=== PATIENT | female | born 1960 | race American Indian/Alaskan Native ===

== ENCOUNTER 2020-04-03 16:12 | Emergency (ER) | payer SELFPAY ==
[2020-04-03 17:20] VITALS: BP 167/89
--- NOTE | 2020-04-03 17:25 | Emergency Department Report ---
ED Back Pain/Injury HPI - General Chief Complaint: Back Pain/Injury Stated Complaint: JOINT PAIN Time Seen by Provider: 04/03/20 17:24 Source: patient Limitations: No Limitations - History of Present Illness Initial Comments: Patient is a 59-year-old female presents emergency room complaints of bilateral lower back pain that radiates down her bilateral legs that began earlier today. She states that she has had these symptoms in the past. She states that she works at [employer] and frequently stands all day long. She states it feels like her back locked up on her. She denies any fever, nausea, vomiting, diarrhea, dysuria, dark urine, numbness, weakness, bowel or bladder incontinence. She denies any fall or injury. She has a past medical history of HTN, psoriasis, hepatitis C. No allergies to medications. She states her pain is worse with movement. She is ambulatory. has been off of amlodipine for 3 months. - Related Data Previous Rx's Medication Instructions Recorded Last Taken Type Acetaminophen/Codeine [Tylenol 1 tab PO Q6H PRN #8 tab 01/25/20 Unknown Rx /Codeine # 3 tab] Ibuprofen [Motrin 800 MG tab] 800 mg PO Q8HR PRN #21 tablet 01/25/20 Unknown Rx Naproxen [Naprosyn TAB] 500 mg PO BID PRN #14 tablet 04/03/20 Unknown Rx amLODIPine 10 mg PO DAILY #30 tab 04/03/20 Unknown Rx methOCARBAMOL [Robaxin TAB] 500 mg PO BID PRN #14 tab 04/03/20 Unknown Rx Allergies Allergy/AdvReac Type Severity Reaction Status Date / Time No Known Allergies Allergy Unverified 01/25/20 10:58 ED Review of Systems ROS: Stated complaint: JOINT PAIN Other details as noted in HPI Comment: All other systems reviewed and negative ED Past Medical Hx - Past Medical History Previous Medical History?: Yes Additional medical history: PSORIASIS - Social History Smoking Status: Never Smoker Substance Use Type: None - Medications Home Medications: Home Medications Medication Instructions Recorded Confirmed Last Taken Type Acetaminophen/Codeine [Tylenol 1 tab PO Q6H PRN #8 tab 01/25/20 Unknown Rx /Codeine # 3 tab] Ibuprofen [Motrin 800 MG tab] 800 mg PO Q8HR PRN #21 tablet 01/25/20 Unknown Rx Naproxen [Naprosyn TAB] 500 mg PO BID PRN #14 tablet 04/03/20 Unknown Rx amLODIPine 10 mg PO DAILY #30 tab 04/03/20 Unknown Rx methOCARBAMOL [Robaxin TAB] 500 mg PO BID PRN #14 tab 04/03/20 Unknown Rx ED Physical Exam - General Limitations: No Limitations General appearance: alert, in no apparent distress - Head Head exam: Present: atraumatic, normocephalic - Eye Eye exam: Present: normal appearance - ENT ENT exam: Present: mucous membranes moist - Respiratory Respiratory exam: Present: normal lung sounds bilaterally. Absent: respiratory distress, wheezes, rales, rhonchi, stridor, chest wall tenderness, accessory muscle use, decreased breath sounds, prolonged expiratory - Cardiovascular Cardiovascular Exam: Present: regular rate, normal rhythm, normal heart sounds. Absent: systolic murmur, diastolic murmur, rubs, gallop - Back Exam Back exam: Present: normal inspection, full ROM, paraspinal tenderness (bilateral L-spine paraspinal muscular ttp, no midline C-spine, T-spine or L- spine ttp, no step offs, no deformities, she has pain with SLR of the bilateral legs). Absent: vertebral tenderness - Neurological Exam Neurological exam: Present: alert, oriented X3, CN II-XII intact, normal gait. Absent: motor sensory deficit - Psychiatric Psychiatric exam: Present: normal affect, normal mood - Skin Skin exam: Present: warm, dry, intact ED Course Vital Signs 04/03/20 04/03/20 17:18 17:37 Temperature 98.3 F Pulse Rate 74 Respiratory 16 18 Rate Blood Pressure 167/89 O2 Sat by Pulse 99 Oximetry ED Medical Decision Making - Medical Decision Making Patient is a 59-year-old female presents emergency room complaints of bilateral lower back pain that radiates down her bilateral legs that began earlier today. She states that she has had these symptoms in the past. She states that she works at [employer] and frequently stands all day long. She states it feels like her back locked up on her. She denies any fever, nausea, vomiting, diarrhea, dysuria, dark urine, numbness, weakness, bowel or bladder incontinence. She denies any fall or injury. She has a past medical history of HTN, psoriasis, hepatitis C. No allergies to medications. She states her pain is worse with movement. She is ambulatory. has been off of amlodipine for 3 months. VSS. on exam:bilateral L-spine paraspinal muscular ttp, no midline C- spine, T-spine or L-spine ttp, no step offs, no deformities, she has pain with SLR of the bilateral legs, no focal neuro deficits. Examination appears most consistent with sciatica versus muscle strain. Patient does not have any red flag warning signs of back pain, no trauma, no unexplained weight loss, no focal neuro deficits, no fever, no steroid use, no history of cancer, no IV drug use. Patient given medications while in the emergency department as she did not drive and symptoms significantly improved and she was feeling much better and ready to go home. Patient given prescription for naproxen and Robaxin. Patient also given a prescription for amlodipine. Advised patient Please take medication as prescribed as needed. Do not drive or operate machinery while taking muscle relaxer Robaxin. May use ice pack, heating pad, rest, Epsom salt bath. Follow- up with your primary care doctor for reexamination. Return to emergency room for any new or worsening symptoms. - Differential Diagnosis Sciatica, radiculopathy, DDD, bulging disc, spondylosis, spondylolisthesis Critical care attestation.: If time is entered above; I have spent that time in minutes in the direct care of this critically ill patient, excluding procedure time. ED Disposition Clinical Impression: Low back pain Qualifiers: Chronicity: acute Back pain laterality: bilateral Sciatica presence: with sciatica Sciatica laterality: bilateral sciatica Qualified Code(s): M54.42 - Lumbago with sciatica, left side Disposition: TO HOME OR SELFCARE Is pt being admited?: No Does the pt Need Aspirin: No Condition: Stable Instructions: Sciatica Additional Instructions: Please take medication as prescribed as needed. Do not drive or operate machinery while taking muscle relaxer Robaxin. May use ice pack, heating pad, r est, Epsom salt bath. Follow-up with your primary care doctor for reexamination. Return to emergency room for any new or worsening symptoms. Prescriptions: amLODIPine 10 mg PO DAILY #30 tab Naproxen [Naprosyn TAB] 500 mg PO BID PRN #14 tablet PRN Reason: pain methOCARBAMOL [Robaxin TAB] 500 mg PO BID PRN #14 tab PRN Reason: pain Referrals: ISAK COX MD [Staff Physician] - 2-3 Days [facility] [Provider Group] - 2-3 Days [facility], [LAB/CONTRACT] - 2-3 Days Forms: Work/School Release Form(ED) Time of Disposition: 18:29 Print Language: BENINESE
[2020-04-03] MEDS ORDERED: CYCLOBENZAPRINE 10 MG TAB PO ONE (17:27)
[2020-04-03] MEDS ORDERED: dexAMETHasone 20 MG/5 ML VIAL IM ONE (17:27)
[2020-04-03] MEDS ORDERED: KETOROLAC 60 MG/2 ML INJ IM ONE (17:27)
[2020-04-03] MEDS ORDERED: traMADol 50 MG TAB PO ONE (17:28)
== END 2020-04-03 18:37 | disposition home or self-care (01) ==
LOC: ED 16:12
DX: M54.5 Low back pain (principal); Z79.899 Other long term (current) drug therapy
CPT/HCPCS: 96372; 99282; J1100; J1885

== ENCOUNTER 2020-10-19 13:37 | Emergency (ER) | payer SELFPAY ==
[2020-10-19] MEDS ORDERED: ASPIRIN 81 MG TAB CHEW PO ONE (15:05)
--- NOTE | 2020-10-19 15:10 | Event Note ---
ED Screening Note Date of service: 10/19/20 Time: 15:06 ED Screening Note: 59-year-old female patient with history of tobacco use, stroke, hypertension, and hyperlipidemia presents to the emergency department with complaints of chest pain radiating to her left arm and left leg starting 2 days ago. Patient sustained a mechanical fall approximately 2 weeks ago when she tripped over her dog and her chest struck a laundry hamper; however, she was not experiencing this type of pain until 2 days ago. Describes the pain as "like a cinder block is sitting on my chest." Patient has not taken statins or antihypertensive medication in over a year due to financial constraints. States she was denise gnosed with a stroke at age 20. She is not anticoagulated. She has not taken any aspirin in the last 24 hours. General: Awake, appropriately interactive, no acute distress. Neck: Supple. Full range of motion intact. Cardiovascular: Normal peripheral perfusion. Tender subcutaneous nodule superior to the left breast. Pulmonary: No respiratory distress. Patient is speaking normally without use of accessory muscles. Skin: No apparent rashes or lesions. Neurological: No facial asymmetry. Speech is clear. Follows commands. Patient is alert and oriented. Musculoskeletal: Moves all four extremities spontaneously with normal range of motion. Psych: Cooperative. Appropriate mood and affect. I have greeted and performed a focused rapid initial assessment of this patient. A comprehensive ED assessment and evaluation of the patient, analysis of all test results, and completion of the medical decision-making process will be conducted by additional ED providers. This initial assessment/diagnostic orders/clinical plan/treatment(s) is/are subject to change based on patients health status, clinical progression and re-assessment. Further treatment and workup at subsequent clinical provider's discretion. Patient/guardian urged not to elope from the ED as their condition may be serious if not clinically assessed and managed.
[2020-10-19 15:50] LABS: Basophils # (Auto) 0.1 K/mm3 (0.0-0.1); Basophils % (Auto) 1.4 % (0.0-1.8); Eosinophils # (Auto) 0.1 K/mm3 (0.0-0.4); Eosinophils % (Auto) 1.3 % (0.0-4.3); Hematocrit 40.3 % (30.3-42.9); Hemoglobin 14.2 gm/dl (10.1-14.3); Lymphocytes # (Auto) 2.3 K/mm3 (1.2-5.4); Mean Corpuscular HGB Conc 35 % (30-34); Mean Corpuscular Volume 98 fl (79-97); Monocytes # (Auto) 0.6 K/mm3 (0.0-0.8); Monocytes % (Auto) 9.9 % (0.0-7.3); Platelet Count 319 K/mm3 (140-440); Red Blood Count 4.11 M/mm3 (3.65-5.03); Red Cell Distribution Width 12.9 % (13.2-15.2)
[2020-10-19 16:00] LABS: INR 0.98 (0.87-1.13)
[2020-10-19 16:01] LABS: Partial Thromboplastin Time 32.6 Sec. (24.2-36.6)
--- NOTE | 2020-10-19 16:06 | XRay Report ---
CHEST 2 VIEWS INDICATION / CLINICAL INFORMATION: Chest pain. COMPARISON: 01/25/20. FINDINGS: SUPPORT DEVICES: None. HEART / MEDIASTINUM: The heart size and pulmonary vasculature are normal. The aorta is normal in mag lester. LUNGS / PLEURA: No significant pulmonary or pleural abnormality. No pneumothorax. ADDITIONAL FINDINGS: No significant additional findings. IMPRESSION: No acute abnormality or significant change. Signer Name: Ta Toney MD Signed: 10/19/2020 4:02 PM Workstation Name: [id number]
[2020-10-19 16:18] LABS: Alanine Aminotransferase 17 units/L (7-56); Albumin 4.2 g/dL (3.9-5); Blood Urea Nitrogen 11 mg/dL (7-17); Calcium 10.4 mg/dL (8.4-10.2); Hemolysis Index 87
[2020-10-19 16:25] LABS: BUN/Creatinine Ratio 18
--- NOTE | 2020-10-19 21:51 | Emergency Department Report ---
ED General Adult HPI - General Chief complaint: Chest Pain Stated complaint: CHEST PAIN Time Seen by Provider: 10/19/20 21:35 Source: patient Mode of arrival: Ambulatory Limitations: No Limitations - History of Present Illness Initial comments: The patient presents to the emergency department the chief complaint of left- sided chest pain that started 1 week ago. 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 Patient also states 2 weeks ago she fell and landed on her chest and has had bruising to her left side of her chest since that time. Patient denies any shortness of breath or pain with inspiration. -: Sudden, week(s) (2) Location: chest Radiation: non-radiation Severity scale (0 -10): 5 Quality: aching Consistency: constant Improves with: none Worsens with: none Associated Symptoms: denies other symptoms Treatments Prior to Arrival: none - Related Data Previous Rx's Medication Instructions Recorded Last Taken Type Acetaminophen/Codeine [Tylenol 1 tab PO Q6H PRN #8 tab 01/25/20 Unknown Rx /Codeine # 3 tab] Ibuprofen [Motrin 800 MG tab] 800 mg PO Q8HR PRN #21 tablet 01/25/20 Unknown Rx Naproxen [Naprosyn TAB] 500 mg PO BID PRN #14 tablet 04/03/20 Unknown Rx amLODIPine 10 mg PO DAILY #30 tab 04/03/20 Unknown Rx methOCARBAMOL [Robaxin TAB] 500 mg PO BID PRN #14 tab 04/03/20 Unknown Rx Albuterol Mdi (or & Nicu Only) 2 puff IH Q4HR PRN #1 inhalation 10/19/20 Unknown Rx [ProAir HFA Inhaler] HYDROcodone/APAP 5-325 [Vulcan 1 each PO Q6HR PRN #12 tablet 10/19/20 Unknown Rx 5/325] Ibuprofen [Motrin] 800 mg PO Q8HR PRN #30 tablet 10/19/20 Unknown Rx amLODIPine 10 mg PO DAILY #30 tab 10/19/20 Unknown Rx amLODIPine 10 mg PO DAILY #30 tab 10/19/20 Unknown Rx predniSONE [Deltasone] 20 mg PO DAILY #15 tablet 10/19/20 Unknown Rx Allergies Allergy/AdvReac Type Severity Reaction Status Date / Time No Known Allergies Allergy Unverified 01/25/20 10:58 ED Review of Systems ROS: Stated complaint: CHEST PAIN Other details as noted in HPI Comment: All other systems reviewed and negative Constitutional: denies: chills, fever Eyes: denies: eye pain, eye discharge, vision change ENT: denies: ear pain, throat pain Respiratory: denies: cough, shortness of breath, wheezing Cardiovascular: chest pain. denies: palpitations Endocrine: no symptoms reported Gastrointestinal: denies: abdominal pain, nausea, diarrhea Genitourinary: denies: urgency, dysuria, discharge Musculoskeletal: denies: back pain, joint swelling, arthralgia Skin: denies: rash, lesions Neurological: denies: headache, weakness, paresthesias Psychiatric: denies: anxiety, depression Hematological/Lymphatic: denies: easy bleeding, easy bruising ED Past Medical Hx - Past Medical History Hx Hypertension: Yes Hx Arthritis: Yes Additional medical history: PSORIASIS, High cholesterol - Social History Smoking Status: Current Every Day Smoker Substance Use Type: Alcohol, Marijuana - Medications Home Medications: Home Medications Medication Instructions Recorded Confirmed Last Taken Type Acetaminophen/Codeine [Tylenol 1 tab PO Q6H PRN #8 tab 01/25/20 Unknown Rx /Codeine # 3 tab] Ibuprofen [Motrin 800 MG tab] 800 mg PO Q8HR PRN #21 tablet 01/25/20 Unknown Rx Naproxen [Naprosyn TAB] 500 mg PO BID PRN #14 tablet 04/03/20 Unknown Rx amLODIPine 10 mg PO DAILY #30 tab 04/03/20 Unknown Rx methOCARBAMOL [Robaxin TAB] 500 mg PO BID PRN #14 tab 04/03/20 Unknown Rx Albuterol Mdi (or & Nicu Only) 2 puff IH Q4HR PRN #1 inhalation 10/19/20 Unknown Rx [ProAir HFA Inhaler] HYDROcodone/APAP 5-325 [Vulcan 1 each PO Q6HR PRN #12 tablet 10/19/20 Unknown Rx 5/325] Ibuprofen [Motrin] 800 mg PO Q8HR PRN #30 tablet 10/19/20 Unknown Rx amLODIPine 10 mg PO DAILY #30 tab 10/19/20 Unknown Rx amLODIPine 10 mg PO DAILY #30 tab 10/19/20 Unknown Rx predniSONE [Deltasone] 20 mg PO DAILY #15 tablet 10/19/20 Unknown Rx ED Physical Exam - General Limitations: No Limitations General appearance: alert, in no apparent distress - Head Head exam: Present: atraumatic, normocephalic - Eye Eye exam: Present: normal appearance, PERRL, EOMI - ENT ENT exam: Present: mucous membranes moist - Neck Neck exam: Present: normal inspection - Respiratory Respiratory exam: Present: normal lung sounds bilaterally, chest wall tenderness (TTP of left chest wall with healed bruises ). Absent: respiratory distress - Cardiovascular Cardiovascular Exam: Present: regular rate, normal rhythm. Absent: systolic murmur, diastolic murmur, rubs, gallop - GI/Abdominal GI/Abdominal exam: Present: soft, normal bowel sounds. Absent: distended, tende rness - Extremities Exam Extremities exam: Present: normal inspection - Back Exam Back exam: Present: normal inspection - Neurological Exam Neurological exam: Present: alert, oriented X3, CN II-XII intact. Absent: motor sensory deficit - Psychiatric Psychiatric exam: Present: normal affect, normal mood - Skin Skin exam: Present: warm, dry, intact, normal color. Absent: rash ED Course Vital Signs 10/19/20 14:19 Temperature 98.7 F Pulse Rate 71 Respiratory 16 Rate Blood Pressure 170/96 O2 Sat by Pulse 100 Oximetry ED Medical Decision Making - Lab Data Result diagrams: 10/19/20 15:13 10/19/20 15:13 Lab Results 10/19/20 10/19/20 10/19/20 Range/Units 15:13 15:13 15:13 WBC 6.3 (4.5-11.0) K/mm3 RBC 4.11 (3.65-5.03) M/mm3 Hgb 14.2 (10.1-14.3) gm/dl Hct 40.3 (30.3-42.9) % MCV 98 H (79-97) fl MCH 35 H (28-32) pg MCHC 35 H (30-34) % RDW 12.9 L (13.2-15.2) % Plt Count 319 (140-440) K/mm3 Lymph % (Auto) 37.0 H (13.4-35.0) % Chambers % (Auto) 9.9 H (0.0-7.3) % Eos % (Auto) 1.3 (0.0-4.3) % Baso % (Auto) 1.4 (0.0-1.8) % Lymph # (Auto) 2.3 (1.2-5.4) K/mm3 Chambers # (Auto) 0.6 (0.0-0.8) K/mm3 Eos # (Auto) 0.1 (0.0-0.4) K/mm3 Baso # (Auto) 0.1 (0.0-0.1) K/mm3 Seg Neutrophils % 50.4 (40.0-70.0) % Seg Neutrophils # 3.1 (1.8-7.7) K/mm3 PT 13.6 (12.2-14.9) Sec. INR 0.98 (0.87-1.13) APTT 32.6 (24.2-36.6) Sec. Sodium 137 (137-145) mmol/L Potassium 4.2 (3.6-5.0) mmol/L Chloride 101.5 (98-107) mmol/L Carbon Dioxide 21 L (22-30) mmol/L Anion Gap 19 mmol/L BUN 11 (7-17) mg/dL Creatinine 0.6 (0.6-1.2) mg/dL Estimated GFR > 60 ml/min BUN/Creatinine Ratio 18 % Glucose 107 H (65-100) mg/dL Calcium 10.4 H (8.4-10.2) mg/dL Magnesium 2.10 (1.7-2.3) mg/dL Total Bilirubin 0.60 (0.1-1.2) mg/dL AST 69 H (5-40) units/L ALT 17 (7-56) units/L Alkaline Phosphatase 85 (35-129) units/L Troponin T < 0.010 (0.00-0.029) ng/mL Total Protein 8.8 H (6.3-8.2) g/dL Albumin 4.2 (3.9-5) g/dL Albumin/Globulin Ratio 0.9 % // Range/Units 17:29 WBC (4.5-11.0) K/mm3 RBC (3.65-5.03) M/mm3 Hgb (10.1-14.3) gm/dl Hct (30.3-42.9) % MCV (79-97) fl MCH (28-32) pg MCHC (30-34) % RDW (13.2-15.2) % Plt Count (140-440) K/mm3 Lymph % (Auto) (13.4-35.0) % Chambers % (Auto) (0.0-7.3) % Eos % (Auto) (0.0-4.3) % Baso % (Auto) (0.0-1.8) % Lymph # (Auto) (1.2-5.4) K/mm3 Chambers # (Auto) (0.0-0.8) K/mm3 Eos # (Auto) (0.0-0.4) K/mm3 Baso # (Auto) (0.0-0.1) K/mm3 Seg Neutrophils % (40.0-70.0) % Seg Neutrophils # (1.8-7.7) K/mm3 PT (12.2-14.9) Sec. INR (0.87-1.13) APTT (24.2-36.6) Sec. Sodium (137-145) mmol/L Potassium (3.6-5.0) mmol/L Chloride (98-107) mmol/L Carbon Dioxide (22-30) mmol/L Anion Gap mmol/L BUN (7-17) mg/dL Creatinine (0.6-1.2) mg/dL Estimated GFR ml/min BUN/Creatinine Ratio % Glucose (65-100) mg/dL Calcium (8.4-10.2) mg/dL Magnesium (1.7-2.3) mg/dL Total Bilirubin (0.1-1.2) mg/dL AST (5-40) units/L ALT (7-56) units/L Alkaline Phosphatase (35-129) units/L Troponin T < 0.010 (0.00-0.029) ng/mL Total Protein (6.3-8.2) g/dL Albumin (3.9-5) g/dL Albumin/Globulin Ratio % - EKG Data -: EKG Interpreted by Me EKG shows normal: sinus rhythm Rate: normal - Radiology Data Radiology results: report reviewed - Medical Decision Making Discussed results with patient and her daughter Patient states she is out of her blood pressure medication and would like a refill for [facility] Critical care attestation.: If time is entered above; I have spent that time in minutes in the direct care of this critically ill patient, excluding procedure time. ED Disposition Clinical Impression: Pleurisy, Chest wall pain, Nonspecific chest pain, Hypertension Disposition: DC-01 TO HOME OR SELFCARE Is pt being admited?: No Does the pt Need Aspirin: No Condition: Fair Instructions: Nonspecific Chest Pain, Adult, Pleurisy, Chest Wall Pain, Hypertension (ED) Additional Instructions: return if worse Prescriptions: amLODIPine 10 mg PO DAILY #30 tab predniSONE [Deltasone] 20 mg PO DAILY #15 tablet Ibuprofen [Motrin] 800 mg PO Q8HR PRN #30 tablet PRN Reason: Pain HYDROcodone/APAP 5-325 [Vulcan 5/325] 1 each PO Q6HR PRN #12 tablet PRN Reason: Pain Albuterol Mdi (or & Nicu Only) [ProAir HFA Inhaler] 2 puff IH Q4HR PRN #1 inhalation PRN Reason: Shortness Of Breath Referrals: PRIMARY CAREMD [Primary Care Provider] - 3-5 Days ISAK COX MD [Staff Physician] - 3-[address] [facility] [Outside] - 3-5 Days [facility] [Provider Group] - 3-5 Days [facility] [Provider Group] - 3-5 Days [facility] [Provider Group] - 3-5 Days [facility] [Provider Group] - 3-5 Days Forms: Work/School Release Form(ED) Time of Disposition: 22:09 Heart Score - HEART Score History: Slightly suspicious EKG: Normal Age: 45-65 Risk factors: 1-2 risk factors Troponin: < normal limit HEART Score: 2 - EKG Read Time Time EKG Completed: 00:00 EKG Read Time: 00:00
[2020-10-19 22:36] VITALS: BP 147/90
--- NOTE | 2020-10-21 19:26 | Electrocardiograph Report ---
[facility] Test Date: 2020-10-19 Test Time: 14:14:18 Pat Name: NANCY MARRERO Department: Room: Gender: F Java Lead: GKING3 : 1960 Requested By: DENTON CISSE Order Number: [id number] Reading MD: Patrick Orourke Measurements Intervals [place] Rate: 61 P: 73 WI: 194 QRS: -72 QRSD: 87 T: 147 QT: QTc: 0 Interpretive Statements Sinus rhythm Ventricular trigeminy Probable left atrial enlargement Left anterior fascicular block Anterior infarct, old Nonspecific T abnormalities, lateral leads No previous ECG available for comparison Electronically Signed On 10-21-2020 19:26:32 EDT by Patrick Orourke
== END 2020-10-19 22:37 | disposition home or self-care (01) ==
LOC: ED 13:37
DX: R09.1 Pleurisy (principal); R07.89 Other chest pain; I10 Essential (primary) hypertension; E78.00 Pure hypercholesterolemia, unspecified; F17.200 Nicotine dependence, unspecified, uncomplicated; F12.90 Cannabis use, unspecified, uncomplicated; Z72.89 Other problems related to lifestyle; Z79.899 Other long term (current) drug therapy
CPT/HCPCS: 36415; 71046; 80053; 83735; 84484; 85025; 85610; 85730; 93005; 99284